=== PATIENT | female | born 1970 | race Caucasian/White ===

== ENCOUNTER → 2024-07-28 | Outpatient (CLI) | payer BC, SELFPAY ==
--- NOTE | 2024-07-28 10:00 | XR_ITS ---
Examination: Abdomen sonogram, Limited Date and time of exam: July 28, 2024 1039 hours INDICATIONS: Family history fatty liver, hyperlipidemia on laboratory examination a few months ago Technique: Real-time carrasco scale transabdominal sonographic images of the upper abdomen obtained. Findings: Normal gallbladder Normal common bile duct 0.4 cm Pancreatic head 1.6 cm Liver 15.1 cm fatty infiltration no focal liver lesions Normal hepatopedal portal venous flow Patent IVC IMPRESSION: Normal gallbladder Fatty liver
--- NOTE | 2024-07-28 10:30 | XR_ITS ---
Examination: Ultrasound soft tissue bilateral axillary regions TECHNIQUE: Grayscale sonographic images soft tissue right axilla Exam date and time: July 28, 2024 1043 hours INDICATIONS: Painful lump in the right axilla noticed beginning 2 years ago FINDINGS: Bilateral nonpathologic appearing lymph nodes, the largest on the right side 18 mm the largest on the left side 20 mm IMPRESSION: BI-RADS Category 2: Benign findings Recommend repeating this study in 3 months as clinically warranted
[2024-07-28 11:26] LABS: Basophils % (Auto) 1 % (0-2.5); Eosinophils # (Auto) 0.1 Thou/mm3 (0.0-0.5); Eosinophils % (Auto) 2 % (0-10); Hematocrit 41.7 % (36.0-46.0); Hemoglobin 14.2 g/dL (12.0-16.0); Immature Granulocytes % (Auto) 0 % (0-0); Immature Granulocytes Auto 0.03 Thou/mm3 (0.00-0.00); Lymphocytes # (Auto) 3.2 Thou/mm3 (1.0-4.8); Lymphocytes % (Auto) 39 % (10-50); Mean Corpuscular HGB Conc 34.1 g/dl (31.0-37.0); Mean Corpuscular Hemoglobin 29.9 pg (25.0-35.0); Mean Corpuscular Volume 88 fL (80-100); Monocytes # (Auto) 0.6 Thou/mm3 (0.0-0.8); Monocytes % (Auto) 7 % (0-12); Neutrophils # (Auto) 4.3 Thou/mm3 (1.8-7.7); Neutrophils % (Auto) 52 % (37-80); Nucleated Red Blood Cell % 0 /100 WBC (0); Platelet Count 284 Thou/mm3 (140-440); RDW Standard Deviation 41.1 fL (36.4-46.3); Red Blood Count 4.75 Miln/mm3 (4.00-5.20); White Blood Count 8.3 Thou/mm3 (3.6-11.0)
[2024-07-28 11:37] LABS: Glucose Estimated Average 108 mg/dL (80-131); Hemoglobin A1C 5.4 % Hgb (4.8-6.0)
[2024-07-28 11:55] LABS: Alanine Aminotransferase 20 U/L (10-49); Albumin, Serum 4.4 gm/dL (3.5-5.0); Albumin/Globulin Ratio 2.1 (1.2-2.2); Alkaline Phosphatase 99 U/L (46-116); Anion Gap 8 (7-16); Aspartate Amino Transferase 19 U/L (0-34); BUN/Creatinine Ratio 18 Ratio (12-20); Bilirubin,Total 0.5 mg/dL (0.3-1.2); Blood Urea Nitrogen 16 mg/dL (9-23); Calcium 9.2 mg/dL (8.3-10.6); Calcium (Corrected) 9.2 mg/dL (8.5-10.1); Carbon Dioxide 27.6 mMol/L (20.0-31.0); Chloride 108 mMol/L (98-107); Creatinine (Component) 0.9 mg/dL (0.6-1.3); Globulin 2.1 gm/dL (2.3-3.5); Glucose 86 mg/dL (74-106); Magnesium 2.1 mg/dL (1.6-2.6); Osmolality,Calculated 287 (275-295); Potassium 3.5 mMol/L (3.4-5.1); Sodium 144 mMol/L (136-145); Thyroid Stimulating Hormone 1.18 uIU/mL (0.55-4.78); Total Protein 6.5 gm/dL (5.7-8.2); eGFR > 60 See Note
[2024-07-28 13:25] LABS: Cardiac Risk Estimate 4.7 RATIO (3.7-5.6); Cholesterol 224 mg/dL (132-200); HDL Cholesterol 48 mg/dL (40-60); LDL Cholesterol,Calculated 143 mg/dL (0-130); Triglycerides 167 mg/dL (30-150)
[2024-07-28 14:05] LABS: Folate 21.57 ng/mL (>5.38); Vitamin D 25 Hydroxy Total 52.2 ng/mL (7.3-40.2)
[2024-07-28 15:55] LABS: Vitamin B12 581 pg/mL (211-911)
[2024-07-31 07:16] LABS: Thyroid Peroxidase Antibodies* 4 IU/mL (<9)
== END | disposition home or self-care (01) ==
LOC: CDIM 10:21 → COPL 11:00
PROVIDERS: PCP Specialist; Referring Provider Specialist; Visit Provider Specialist
DX: E03.8 Other specified hypothyroidism (principal); E78.2 Mixed hyperlipidemia; R59.0 Localized enlarged lymph nodes; G43.111 Migraine with aura, intractable, with status migrainosus; E55.9 Vitamin D deficiency, unspecified; K76.0 Fatty (change of) liver, not elsewhere classified; Z86.2 Personal history of diseases of the blood and blood-forming organs and certain disorders involving the immune mechanism; Z83.3 Family history of diabetes mellitus
CPT/HCPCS: 36415; 76705; 76882; 80053; 80061; 82306; 82607; 82746; 83036; 83735; 84439; 84443; 84481; 85025; 86376

== ENCOUNTER → 2025-01-22 | Outpatient (CLI) | payer BC, SELFPAY | END | disposition home or self-care (01) | LOC: SLDO 14:31 | PROVIDERS: PCP Specialist; Referring Provider Specialist; Visit Provider Specialist | DX: B35.1 Tinea unguium (principal) | CPT/HCPCS: 87070; 87205 ==